=== PATIENT | female | born 1975 | race Caucasian/White ===

== ENCOUNTER 2016-07-05 04:44 | Emergency (ER) | payer BC, MEDICARE ==
[~2016-07-05 04:44] MED LIST: ADDERALL XR 2020 M1 PO; ALEVE220 M1 PO; ALPRAZOLAM1 M2 PO; AMBIEN CR12.5 MG/BO PO; AMBIEN10 MG PO; AMPHETAMINE SAL20 M1 PO; BELSOMRA15 MG PO; BYSTOLIC5 MG PO; CALTRATE 600 W1 EACH PO; CALTRATE-600/VI1 TAB PO; CENTRUM CH1 TAB.CHEW PO; CLONAZEPAM1 MG PO; CLOTRIMAZOLE-BE15 GM TP; COMPAZINE10 M PO; EFFEXOR PO; EFFEXOR XR75 MG PO; EFFEXOR100 MG PO; EQL FISH OIL 1,1 CA1 PO; GLUCOPHAGE XR500 MG PO; GLUCOPHAGE850 MG PO; HALDOL PO; HALDOL1 MG/TA1 PO; HALOPERIDOL1 MG PO; HYDROCHLOROTH12.5 MG PO; INDERAL40 MG PO; KLONOPIN0.5 MG PO; KLONOPIN1 M1 PO; KLONOPIN1 MG PO; KLONOPIN2 MG PO; LAMICTAL150 MG PO; LEVAQUIN250 MG PO; LIPITOR; LIPITOR40 M1 PO; LIPITOR40 MG PO; LISINOPRIL20 MG PO; LORAZEPAM0.5 M1 PO; LYRICA150 MG PO; LYRICA75 MG PO; LYRICA75 MG/CAP PO; MAXZIDE 37.5 M1 EACH PO; MELATONIN10 M1 PO; MELATONIN5 M1 PO; METFORMIN HCL500 PO; MOBIC15 MG PO; MOBIC7.5 M1 PO; MULTIVITAMIN1 TAB PO; NALDOL80 MG PO; NORCO 5/325 TAB1 TAB PO; NUCYNTA50 MG PO; OMEPRAZOLE20 M1 PO; OMNARIS12.5 GM NS; PARLODEL5 MG PO; PREDNISONE50 MG PO; PRILOSEC OTC20 MG PO; PRILOSEC40 MG PO; SAVELLA50 MG PO; SEROQUEL400 MG PO; STELAZINE PO; STELAZINE5 MG PO; STRATTERA40 MG PO; SYNTHROID125 MCG PO; SYNTHROID137 MCG PO; TOPAMAX200 M1 PO; TRAMADOL HCL50 MG PO; TRAZODONE HCL100 MG PO; TRAZODONE100 MG PO; TRIFLUOPERAZINE10 MG PO; TRIFLUOPERAZINE5 MG PO; VERAPAMIL ER240 MG PO; VERAPAMIL HCL40 MG PO; VICODIN 5/500 T1 TAB PO; VYVANSE40 MG PO; VYVANSE60 MG PO; XANAX1 MG PO; YEAST CREAM TOP; ZANTAC150 MG PO; ZITHROMAX250MG Z-PAK PO; ZOCOR20 MG PO; ZOFRAN4 MG PO; [UNRECOGNIZED DRUG - OTHER] PO
[2016-07-05] MEDS ORDERED: ULTRAM50 M1 PO (05:09)
[2016-07-05] MEDS ORDERED: ARMOUR THYROID60 M2 PO (05:10)
[2016-07-05] MEDS ORDERED: MAGNESIUM250 M2 PO (05:11)
[2016-07-05] MEDS ORDERED: TRAZODONE HCL150 M1 PO (05:11)
[2016-07-05] MEDS ORDERED: NEURONTIN600 M1 PO (05:11)
[2016-07-05] MEDS ORDERED: MAXZIDE 37.5 M1 EAC1 PO (05:12)
[2016-07-05] MEDS ORDERED: PROPRANOLOL HCL20 M2 PO (05:12)
[2016-07-05] MEDS ORDERED: FLAX SEED OIL1000 M2 PO (05:13)
[2016-07-05] MEDS ORDERED: EFFEXOR XR150 M1 PO (05:13)
[2016-07-05] MEDS ORDERED: PROBIOTIC1 EA10 PO (05:14)
[2016-07-05] MEDS ORDERED: SYNTHROID75 MC1 PO (05:15)
[2016-07-05] MEDS ORDERED: COQ-10100 M1 PO (05:15)
[2016-07-05] MEDS ORDERED: VITAMIN D-32000 UNI4 PO (05:15)
[2016-08-01] MEDS ORDERED: MECLIZINE HCL25 M3 PO (15:39)
[2016-08-01] MEDS ORDERED: METHYLFOLATE PO (15:41)
[2016-10-09] MEDS ORDERED: TOPAMAX50 M3 PO (04:31)
[2016-10-11] MEDS ORDERED: HYDROCHLOROTHIA25 M1 PO (09:42)
[2016-10-11] MEDS ORDERED: ATOMOXETINE HCL25 MG PO (09:42)
[2016-10-11] MEDS ORDERED: TOPAMAX50 M3 PO (09:44)
[2016-10-11] MEDS ORDERED: NYSTOP60 GM TOP (09:48)
[2016-10-11] MEDS ORDERED: SYNTHROID75 MC1 PO (09:52)
[2016-10-27] MEDS ORDERED: BUSPIRONE HCL15 M2 PO (16:02)
== END 2016-07-05 06:06 ==
LOC: EDMED 04:44
DX: S99.922A Unspecified injury of left foot, initial encounter (principal); I10 Essential (primary) hypertension; E78.5 Hyperlipidemia, unspecified; E03.9 Hypothyroidism, unspecified; Z88.2 Allergy status to sulfonamides; Z88.8 Allergy status to other drugs, medicaments and biological substances; Z88.7 Allergy status to serum and vaccine; Z91.013 Allergy to seafood; W22.8XXA Striking against or struck by other objects, initial encounter; Y92.009 Unspecified place in unspecified non-institutional (private) residence as the place of occurrence of the external cause